=== PATIENT | male | born 1985 | race Caucasian/White ===

== ENCOUNTER 2018-06-11 10:22 | Emergency (ER) | payer SELFPAY ==
[~2018-06-11] VITALS: Ht 170.1 cm; Wt 97.5 kg
--- NOTE | ~2018-06-11 | EKG ---
[place], [place] ELECTROCARDIOGRAM REPORT NAME: ROSENDA GRIJALVA UNIT #: [id number] ROOM: DOCTOR: EPIPHANY DRAFT REPORT BIRTHDATE: [birth year] [facility] Test Date: 2018-06-11 Test Time: 10:24:53 Pat Name: ROSENDA GRIJALVA Department: Room: Gender: Rn [facility]: Opal Lemus : 1985 Requested By: KARLA VASQUEZ Order Number: [id number] Reading MD: Scott Pradhan MD Measurements Intervals [place] Rate: 85 P: 8 WA: 143 QRS: 68 QRSD: 96 T: 39 QT: 348 QTc: 414 Interpretive Statements Sinus rhythm Nonspecific ST T changes Electronically Signed On 06-12-2018 11:23:48 PST by Scott Pradhan MD CM:[email or web address]:ELECTROCARDIOGRAM REPORT [id number] KARLA AVILA DRAFT REPORT KARLA VASQUEZ MD
[~2018-06-11 10:22] MED LIST: ANAPROX DS550 MG PO; BUSPAR5 MG PO; CHOLESTEROL; CYCLOBENZAPRINE10 MG PO; Motrin,Rufen800 MG PO; ULTRAM50 MG PO; VISTARIL50 MG PO; VYVANSE60 MG PO; ZOLOFT25 MG PO
[2018-06-11 10:36] LABS: BASO # 0.1 10*3/uL (0.0-0.1); BASO % 0.8 % (0.0-1.0); EOS # 0.7 10*3/uL (0.0-0.4); EOS % 7.1 % (1.0-4.0); HEMATOCRIT 45.5 % (42.0-52.0); HEMOGLOBIN 14.7 g/dl (14.0-18.0); LYMPH # 3.2 10*3/uL (1.3-4.4); LYMPH % 34.6 % (27.0-41.0); MEAN CELL VOLUME 91.2 fl (80.0-94.0); MEAN CORPUSCULAR HGB 29.5 pg (27.0-31.0); MEAN CORPUSCULAR HGB CONC 32.3 g/dl (33.0-37.0); MEAN PLATELET VOLUME 10.9 fl (9.6-12.3); MONO # 0.7 10*3/uL (0.1-1.0); MONO % 7.9 % (3.0-9.0); NEUT # 4.6 10*3/uL (2.3-7.9); NEUT % 49.4 % (47.0-73.0); PLATELET COUNT AUTOMATED 244 10*3/uL (130-400); RED BLOOD COUNT 4.99 10*6/uL (4.50-5.90); RED CELL DISTRI WIDTH 13.9 % (0-14.5); WHITE BLOOD COUNT 9.3 10*3/uL (4.8-10.8)
[2018-06-11 10:47] LABS: ACT PARTIAL THROMBO TIME 24.5 SECONDS (20.8-31.5); INTERNATIONAL NORM RATIO 0.9 (2.0-3.5)
[2018-06-11 10:53] LABS: ALBUMIN 3.5 gm/dl (3.1-4.5); ALKALINE PHOSPHATASE 82 U/L (45-117); BUN 11 mg/dl (7-24); CHLORIDE 106 mmol/L (98-107); CREATININE 1.05 mg/dL (0.70-1.30); POTASSIUM 4.3 mmol/L (3.5-5.1); SGOT/AST 13 IU/L (3-35); SGPT/ALT 33 U/L (12-78); SODIUM 141 mmol/L (136-145)
[2018-06-11 10:55] LABS: TROPONIN I < 0.015 ng/ml (<0.045)
== END 2018-06-11 13:50 | disposition home or self-care (01) ==
LOC: ED 10:22
PROVIDERS: Emergency Medicine
DX: R07.9 Chest pain, unspecified (principal); E66.9 Obesity, unspecified; E78.00 Pure hypercholesterolemia, unspecified; F17.210 Nicotine dependence, cigarettes, uncomplicated; Z79.899 Other long term (current) drug therapy

== ENCOUNTER 2018-07-16 07:37 | Emergency (ER) | payer SELFPAY ==
[~2018-07-16] VITALS: Wt 90.7 kg
[2018-07-16] MEDS ORDERED: Motrin,Rufen800 MG PO (08:59)
== END 2018-07-16 09:05 | disposition home or self-care (01) ==
LOC: ED 07:37
DX: S60.211A Contusion of right wrist, initial encounter (principal); Z79.899 Other long term (current) drug therapy; W00.0XXA Fall on same level due to ice and snow, initial encounter; Y93.89 Activity, other specified; Y92.89 Other specified places as the place of occurrence of the external cause; Y99.8 Other external cause status

== ENCOUNTER 2019-10-21 00:45 | Emergency (ER) | payer BC ==
[~2019-10-21] VITALS: Ht 170 cm; Wt 99.8 kg
== END 2019-10-21 01:43 | disposition home or self-care (01) ==
LOC: ED 00:45
DX: S61.210A Laceration without foreign body of right index finger without damage to nail, initial encounter (principal); J45.909 Unspecified asthma, uncomplicated; F31.9 Bipolar disorder, unspecified; Z88.8 Allergy status to other drugs, medicaments and biological substances; Z79.899 Other long term (current) drug therapy; W26.0XXA Contact with knife, initial encounter; Y93.89 Activity, other specified; Y92.89 Other specified places as the place of occurrence of the external cause; Y99.8 Other external cause status

== ENCOUNTER 2019-11-18 20:57 | Emergency (ER) | payer BC ==
[~2019-11-18] VITALS: Ht 170.1 cm; Wt 95.3 kg
== END 2019-11-18 23:45 | disposition left against medical advice (07) ==
LOC: ED 20:57
DX: S00.05XA Superficial foreign body of scalp, initial encounter (principal); F17.200 Nicotine dependence, unspecified, uncomplicated; Z88.6 Allergy status to analgesic agent; W34.010A Accidental discharge of airgun, initial encounter; Y93.89 Activity, other specified; Y92.89 Other specified places as the place of occurrence of the external cause; Y99.8 Other external cause status

== ENCOUNTER → 2020-06-13 | Outpatient (CLI) | payer OTHER | END | disposition home or self-care (01) | LOC: COVID19 14:40 | PROVIDERS: ATTEND Internal Medicine | DX: Z20.822 Contact with and (suspected) exposure to COVID-19 (principal) ==